=== PATIENT | female | born 1955 | race Caucasian/White ===

== ENCOUNTER 2021-05-20 19:30 | Inpatient (IN) | payer MEDICARE, BC, SELFPAY ==
[2021-05-20 19:30] VITALS: BP 142/62; PULSE 57; RESP 18; TEMP 37.2; O2SAT 95
[2021-05-20 20:17] VITALS: BMI 19.8
--- NOTE | 2021-05-21 03:53 | NURSING ---
PT STRAIGHT CATHED FOR URINE SPECIMEN. 800ML OF CLEAR, YELLOW URINE DRAINED FROM BLADDER. PT TOLERATES PROCEDURE WELL.
[2021-05-21 03:57] LABS: Bacteria 0 SEEN /hpf (None Seen); Mucous, Urine 0 SEEN /hpf (<or=2+); Squamous Epithelial Cells - UA 0 SEEN /hpf (5-10); White Blood Cells 0 SEEN /hpf (0-5)
[2021-05-21 04:12] LABS: Color, Urine Yellow (Yellow); Glucose, Dipstick Normal (Normal); Ketone-Dipstick 50 mg/dl (Negative); Leukocyte Esterase-Dipstick Negative /ul (Negative); Nitrite-Dipstick Negative (Negative); Occult Blood-Urine 150 /ul (Negative); Protein-Dipstick Negative (Negative); Urine Bilirubin Dipstick Negative (Negative); Urine Clarity Clear (Clear); Urine Urobilinogen Normal (Normal); Urine pH 6.5 (5.0 - 8.0)
[2021-05-21 04:21] LABS: Red Blood Cells-Urine 10-25 SEEN /hpf (0-5)
[2021-05-21] MEDS: Menthol/Lanolin/Calamine/Znox 113 GM Tube 1 APPLIC TOPICAL ×2 (05:37→21:04)
[2021-05-21] MEDS: Ondansetron ODT 4 MG Tablet 8 MG PO ×2 (06:46→21:08)
[2021-05-21 08:45] VITALS: BP 136/54; PULSE 57; RESP 20; TEMP 37.1; O2SAT 96
[2021-05-21 08:51] LABS: Hematocrit 28.5 % (37-47); Hemoglobin 9.5 g/dL (12.0-15.0); Mean Corp Hgb Conc 33.3 g/dL (32-36); Mean Corpuscular Hgb 28.9 pg (27.0-32.0); Mean Corpuscular Volume 86.6 fL (81-99); Mean Platelet Vol. 12.4 fl (6.2-12.0); Platelet Count 220 K/mm3 (150-450); RBC Distribution Width CV 15.8 % (11.6-14.6); Red Blood Count 3.29 M/mm3 (4.2-5.4); White Blood Count 4.6 K/mm3 (4.4-11.0)
[2021-05-21 09:19] LABS: ALB/GLOB Ratio 0.5 RATIO (0.9-2.4); AST(SGOT) 14 U/L (15-37); Alanine Aminotransfer ALT/SGPT 11 U/L (13-56); Albumin, Serum 2.2 g/dL (3.2-5.0); Alkaline Phosphatase 48 U/L (45-117); Anion Gap 8 (5-15); BUN 12 mg/dL (7-18); BUN/Creat Ratio 20.5 RATIO (10-20); Calcium,Total 8.5 mg/dL (8.5-10.1); Chloride 106 mmol/L (98-107); Creatinine, Serum 0.59 mg/dL (0.55-1.02); EST Glomerular Filtration Rate 109 mL/min (>60); Est Glom Filt Rate - Afr Amer 132 mL/min (>60); Estimated Creatinine Clearance 42.23 ml/min; Globulin 4.3 g/dL (2.2-4.2); Glucose 92 mg/dL (74-106); Magnesium 2.2 mg/dL (1.6-2.6); Potassium 3.7 mmol/L (3.5-5.1); Protein, Total 6.5 g/dL (6.4-8.2); Sodium Level 138 mmol/L (136-145)
[2021-05-21] MEDS: Lisinopril 20 MG Tablet PO (10:12)
[2021-05-21] MEDS: Aspirin 81 MG TAB.CHEW PO (10:12)
[2021-05-21] MEDS: Multivitamins,Therapeutic Tablet 1 TABLET PO (10:12)
[2021-05-21] MEDS: Heparin Injection (Vial) 5,000 UNIT/ML VIAL 5000 UNIT SC ×2 (10:12→20:58)
[2021-05-21] MEDS: Propranolol 40 MG Tablet 80 MG PO ×2 (10:12→20:59)
[2021-05-21 10:26] VITALS: BP 121/87
--- NOTE | 2021-05-21 10:50 | HP.PCM_ITS ---
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 She was scheduled for a R STA/MCA direct bypass on 05/11/21. The procedure was complicated by hyperperfusion ICH and she then underwent a R FTP (frontal temporal parietal) craniectomy, hematoma evacuation and closure of the distal bypass graft followed by a R titanium mesh cranioplasty. Post operatively she was evaluated by PT/OT/ST and transfer to an acute rehab facility was recommended. She was transferred to the acute rehab unit at [facility] on 05/21/21 for 3 hours of therapy daily to restore function/independence at or near her prior level. Deepika gets Aranesp 300 mcg injection every 2 weeks for MDS. I spoke with her Arjun on the phone and explained we do not have the medication on formulary at [facility] and we would not be able to have that medication while she is in rehab. She received an injection at the previous hospital on 05/19/21. Arjun asked if he could take her to her oncologist's office when the injection is due in 2 weeks and I explained that we can not accommodate this request due to the cost of the medication because it would be charged to [facility] even though she got the injection somewhere else. I told him that if in 2 weeks she is not ready to be discharged we could transfuse if needed. He was agreeable with this plan. COVID test was negative prior to transfer to [facility]. All paperwork from [facility] was reviewed. [facility], [facility] Medical History (Updated 05/21/21 @ 14:[address] Qing Larose DO) 3rd cranial nerve palsy Anxiety and depression Chronic renal failure, stage 2 (mild) Former smoker Gallstone pancreatitis GERD (gastroesophageal reflux disease) Hiatal hernia History of meningioma of the brain History of migraine Hyperlipidemia Hypertension Myelodysplastic disease Sixth cranial nerve palsy TIA (transient ischemic attack) Home Medications acetaminophen 650 mg PO Q6H PRN 05/20/21 [History Last Taken Unknown] artificial tears solution 1 drp OPHTHALMIC (EYE) TID PRN 05/20/21 [History Last Taken Unknown] aspirin 81 mg PO DAILY 05/20/21 [History Last Taken Unknown] atorvastatin 40 mg PO DAILY 05/20/21 [History Last Taken 05/20/21 17:00] lisinopril 20 mg PO DAILY 05/20/21 [History Last Taken Unknown] ondansetron 8 mg PO Q8H PRN 05/20/21 [History Last Taken Unknown] oxycodone 5 mg PO Q4H PRN 05/20/21 [History Last Taken Unknown] propranolol 80 mg PO BID 05/20/21 [History Last Taken Unknown] loratadine 10 mg PO DAILY PRN 05/21/21 [History Last Taken Unknown] lorazepam 0.5 mg PO Q12H PRN PRN 05/21/21 [History Last Taken Unknown] Allergy/AdvReac Type Severity Reaction Status Date / Time Iodinated Contrast Media Allergy Rash Verified 05/21/21 00:39 [CONTRASTS] iodine Allergy Rash Verified 05/20/21 20:26 shellfish derived Allergy Rash Verified 05/20/21 20:26 amoxicillin [From Augmentin] AdvReac Vomiting Verified 05/21/21 12:17 azithromycin [From Zithromax] AdvReac Vomiting Verified 05/21/21 12:17 cephalexin [From Keflet] AdvReac Vomiting Verified 05/21/21 12:17 clavulanic acid AdvReac Vomiting Verified 05/21/21 12:17 [From Augmentin] doxycycline AdvReac Vomiting Verified 05/21/21 12:17 hydrochlorothiazide AdvReac Vomiting Verified 05/21/21 12:17 [From Dyazide] triamterene [From Dyazide] AdvReac Vomiting Verified 05/21/21 12:17 Family History (Updated 05/21/21 @ 14:[address] Qing Larose DO) Mother CVA (cerebral vascular accident) CAD (coronary artery disease) Father CVA (cerebral vascular accident) CAD (coronary artery disease) Hypertension Brother Seizures Surgical History (Updated 05/21/21 @ 14:[address] Qing Larose DO) H/O section H/O hysterectomy for benign disease History of cranioplasty History of resection of meningioma History of tonsillectomy Status post craniectomy Social History (Updated 05/21/21 @ 14:[address] Qing Larose, DO) household members: spouse housing: house number of children: 3 current occupational status: unemployed Smoking Status: Former smoker Tobacco: How many years used: 3 how long ago did patient quit smokin substance use type: does not use ROS Constitutional Constitutional: Reports fatigue and weakness; Denies anorexia, change in weight, chills, fever(s) or night sweats Eyes Eyes: Reports other Details: R eye does not track since the endonasal resection of the cavernous sinus meningioma in 2017 ; Denies blurry vision, change in vision, double vision, eye pain or loss of vision ENT HEENT: Reports dysphagia; Denies abnormal hearing, ear pain, headache(s), hearing loss, loss taste/smell, nasal congestion, nasal discharge, sore throat or throat swelling Cardiovascular Cardiovascular: Denies chest pain, dyspnea on exertion, edema, lightheadedness, orthopnea, palpitations, paroxysmal nocturnal dyspnea or syncope Respiratory/Chest Respiratory/Chest: Denies cough, dyspnea, shortness of breath at rest, shortness of breath with exertion or wheezing Gastrointestinal Gastrointestinal: Reports nausea and other Details: tells me that she takes a lot of Zofran for nausea. ; Denies abdominal pain, constipation, diarrhea, dyspepsia, hematemesis, hematochezia or vomiting Genitourinary Genitourinary: Reports urinary frequency and other Details: urine retention ; Denies dysuria, hematuria, nocturia, urinary hesitancy, urinary incontinence or urinary urgency Musculoskeletal Musculoskeletal: Denies back pain, joint pain, joint swelling or neck pain Integumentary Integumentary: Reports other Details: Incision R side of the scalp from recent FTP craniectomy ; Denies jaundice or rash Neurologic Neurologic: Reports abnormal speech, focal weakness and weakness; Denies co nfusion, disequilibrium, dizziness, headache(s), paresthesias, seizures or tremor(s) Psychiatric Psychiatric: Reports anxiety and depression; Denies homicidal ideation or suicidal ideation Endocrine Endocrinology: Denies change in body appearance, polydipsia or polyuria Hematologic/Lymphatic Hematologic/Lymphatic: Denies easy bleeding, easy bruising or lymphadenopathy Allergic/Immunologic Allergic/Immunologic: Denies rhinitis, eczemia or asthma Vital Signs Vital Signs Vital Signs: 05/20/21 19:30 05/20/21 20:00 05/21/21 08:45 Temperature 99 F 98.8 F Temperature Source Temporal Oral Pulse Rate 57 L 57 L Respiratory Rate 18 20 H Respiratory Effort Normal Respiratory Depth Normal Respiratory Pattern Normal Blood Pressure 142/62 H 136/54 H Blood Pressure Mean 88 81 Blood Pressure Source Monitor Monitor Blood Pressure Position Semi-Fowlers Semi-Fowlers Blood Pressure Location Right Arm Right Arm Pulse Ox 95 96 Oxygen Delivery Method Room Air Room Air Room Air 05/21/21 10:26 Temperature Temperature Source Pulse Rate Respiratory Rate Respiratory Effort Respiratory Depth Respiratory Pattern Blood Pressure 121/87 H Blood Pressure Mean 98 Blood Pressure Source Monitor Blood Pressure Position Semi-Fowlers Blood Pressure Location Right Arm Pulse Ox Oxygen Delivery Method Weight Weight: 108 lb 0.424 oz Body Mass Index (BMI) 19.8 Indicators for Scoring Admitted with or Primary Diagnosis of CVA/Stroke: Yes Hx of CVA/Stroke: Yes Modified Jamison Score MRS Score at time of Evaluation: 3-Moderate disability NIHSS NIHSS 1a. Level of Consciousness: Alert; keenly responsive 1b. LOC Questions: Answers BOTH questions correctly. 1c. LOC Commands: Performs both tasks correctly. 2. Best Gaze: Partial gaze palsy; (left eye does not track past the midline laterally. Intact vision on the L. Has CN 3 and 6 palsy on the R since resection of meningioma in 2017) 3. Visual: No visual loss 4. Facial Palsy: Minor paralysis (flattened nasolabial fold, asymmetry on smi ling) 5a. Left Arm: Drift; arm drifts downward but doesn?t hit the bed 5b. Right Arm: No drift; arm holds 90 (or 45) degrees for full 10 seconds 6a. Left Leg: No drift; leg holds 30-degree position for full 5 seconds 6b. Right Leg: No drift; leg holds 30-degree position for full 5 seconds 7. Limb Ataxia: Absent 8. Sensory: Normal; no sensory loss 9. Best Language: No aphasia; normal 10. Dysarthria: Normal 11. Extinction and Inattention: Profound shreya-inattention or extinction to more than one modality; Total: 5 Physical Exam Const alert, oriented x3 and no apparent distress General Appearance: cooperative HEENT HEENT Narrative: Tongue is coated with white coating. Large incision R scalp due to craniotomy. Intact with no erythema and no DC. Mouth: dry mucous membranes Eyes PERRL Eyes Narrative: R eye is on midline and does not track. The left eye does not track past the midline laterally. No visual deficit on the left ......she has visual and sensory deficit. Neck No nuchal rigidity and supple General: trachea midline; Negative for lymphadenopathy Resp normal respiratory effort, normal air movement and clear to auscultation bilaterally Resp Narrative: no conversational dyspnea Auscultation: Negative for rales, rhonchi or wheezes Cardio regular rate, regular rhythm, S1 normal heart sound, S2 normal heart sound, no murmurs, no rub and no gallops Cardio Narrative: no ectopy GI normal to inspection, nondistended, normoactive bowel sounds, soft to palpation and non-tender Extremity Negative for no calf tenderness General Extremity: Negative for clubbing, cyanosis or edema Skin Skin Narrative: scalp incision General Skin Exam: no breakdown Rashes: no rashes Wounds: wounds noted Neuro Neuro Narrative: see NIHSS Psych Psych Narrative: Speech is monotone. Affect is flat. Makes appropriate eye contact. Seems to have a problem with motivation.......she will do what is asked of her, sometimes saying she can't and then does it but she is not really motivated to do things without prompting. Will need to talk with her to see if this is new? or is this chronic even prior to the recent ICH. She s not fidgety or restless. She is able to follow simple commands. She is cooperative . I do sense she has some psychomotor slowing. Thought Content: No suicidality and No homicidality Results Lab / Micro Data Result Diagrams: 05/21/21 08:35 05/21/21 08:35 Labs: Laboratory Results - last 24 hr 05/21/21 03:45: Urine Color Yellow, Urine Clarity Clear, Urine pH 6.5, Ur Specific [place] 1.010, Urine Protein Negative, Urine Glucose (UA) Normal, Urine Ketones 50 H, Urine Occult Blood 150 H, Urine Nitrite Negative, Urine Bilirubin Negative, Urine Urobilinogen Normal, Ur Leukocyte Esterase Negative, Urine RBC 10-25 SEEN, Urine WBC 0 SEEN, Ur Squamous Epith Cells 0 SEEN, Urine Bacteria 0 SEEN, Urine Mucus 0 SEEN 05/21/21 08:35: WBC 4.6, RBC 3.29 L, Hgb 9.5 L, Hct 28.5 L, MCV 86.6, MCH 28.9, MCHC 33.3, RDW Std Deviation 49.0 H, RDW Coeff of Adin 15.8 H, Plt Count 220, MPV 12.4 H 05/21/21 08:35: Sodium 138, Potassium 3.7, Chloride 106, Carbon Dioxide 24.0, Anion Gap 8, BUN 12, Creatinine 0.59, Estim Creat Clear Calc 42.23, Est GFR (MDRD) Af Amer 132, Est GFR (MDRD) Non-Af 109, BUN/Creatinine Ratio 20.5 H, Glucose 92, Calcium 8.5, Phosphorus 3.0, Magnesium 2.2, Total Bilirubin 1.10 H, AST 14 L, ALT 11 L, Alkaline Phosphatase 48, Total Protein 6.5, Albumin 2.2 L, Globulin 4.3 H, Albumin/Globulin Ratio 0.5 L Assessment & Plan Assessment/Plan (1) Physical debility: (2) Hemorrhagic cerebrovascular accident (CVA): (3) Status post craniectomy: (4) History of cranioplasty: (5) Myelodysplastic disease: (6) Malnutrition: (7) GERD (gastroesophageal reflux disease): (8) Hyperlipidemia: (9) Chronic renal failure, stage 2 (mild): (10) Sixth cranial nerve palsy: (11) 3rd cranial nerve palsy: (12) Hypertension: (13) Former smoker: (14) Anxiety and depression: PLAN: PLAN PT for gait stability OT for ADL's ST for evaluation Analgesics as needed Bowel protocol Fall precautions Assess for Anxiety/Depression - I did this. She is not on a medication for depression and she is on PRN Ativan but, states she does not take this and she does not like taking medications. She is in counselling. We talked about a me dication at night to help with insomnia so she can rest and have enough energy to do 3 hours of therapy daily. She will consider this. I discussed discontinuing the Ativan with her because it is addictive and can cause confusion and falls and she is OK with this. She has not been taking chronical ly so this should not be a problem with withdrawal. GI prophylaxis not necessary at this time......she is asymptomatic and has not been on a PPI or an H2 DVT prophylaxis with Heparin Follow up with neurosurgery (scheduled for 05/28), oncologist and PCP following DC from [facility] AM lab from this AM was personally reviewed. Will revisit use of Trazodone at HS to help with insomnia. follow up appt with Nika Figueroa CNP - Neurosurgery on 05/28/21 Charges/Coding Visit Charges Inpatient E&M: 78949 Init Hosp L3
--- NOTE | 2021-05-21 15:34 | REHABEVAL_ITS ---
Admission Information Primary Diagnosis:: Debility due to ICH/craniectomy Status Changes from Prescreening?: No changes Identified Actual Problem List:: Skin Intergrity, Pain, ALteration in Cmfrt, Depression, Alteration in Sleep, Alteration in Nutrition, Mobility Impaired, Self Care Deficit, Know.Dfct of Medicaitons, Fluid Change-Dehydration and Alteration- Leisure Activ. Potential Problem List:: DVT, Bleeding, Infection, UTI, Aspiration, Falls, Skin Integrity and Depression Risk of Complications DVT: LUCHO Hose and - (Heparin 5,000 units Q 12H) Bleeding: Monitor Lab Values, Nursing to Teach Precautions for anti-coagulation therapy., Wound, if applicable, to be assessed every shift. and Stroke patients assessed for lethargy or change in status. Infection: Clinical Staff to Monitor for S/S of infection: and S/S of infection include fever, redness, warmth, etc. Urinary Tract Infection: Monitor for frequency, burning, discomfort, or incontinence. and Nursing will obtain urine sample for urinalysis and C&S when ordered. Aspiration: Clinical staff will monitor for coughing, drooling, congestion., Speech will evaluate swallowing and dsyphasia. and Nursing will monitor patient swallowing during meals. Falls: Patient will be evaluated for Fall Precautions and Patient will be placed on Fall Precautions as indicated per protocol. Skin Breakdown: Nursing will assess skin daily using assessment tool. and Nursing will place on Skin Breakdown Precautions as indicated. Pain: Clinical staff will assess patient's pain level per protocol., Medications will be given, if needed, and the pain level reassessed. and Other methods: Massage, distraction, decrease stimulus, etc. used PRN. Plan of Care Patient requires physician specializing in physical medicine and rehab oversight to provide close medical supervision of rehab issues including: Pain Management, Sleep Problems, Bowel and Bladder, Medical and co-morbidity Management, DVT prophylaxis, Rehabilitation Leadership and Coordination of treatment team Patient needs Physical Therapy: For a minimum of 1 hour and At least 5 out of 7 days Patient needs Physical Therapy to improve:: Mobility, Strengthening, Transfers, Stretching, ROM, Endurance, Stairs, Gait and Balance Patient needs Occupational Therapy: For a minimum of 1 hour and At least 5 out of 7 days Patient needs Occupational Therapy to improve ADL's incl.: Eating, Grooming, Bathing, Dressing, Toileting, Toilet transfers, Community Reintegration, Higher functioning activities, Household tasks, Adaptive Equipment, Splinting and Other activities as determined Patient requires speech therapy: For a minimum of 1 hour and At least 5 out of 7 days Patient requires speech therapy for: Swallowing, Cognition, Language Skills and Compensatory Strategies Patient requires 24/7 Rehabilitation Nursing for: Pain Issues, Identifying and preventing risk factors, Monitoring and reporting current medical conditions, Assisting with ambulation, transfer, and all ADL's, Teaching patients about disease process and medications, Family teaching, Providing safe environment, Bowel and Bladder Issues, Skin integrity and Medication Management Patient needs Exercise Equipment Repair Technician/ Case Management for: Discharge Planning, Arranging Home Equipment or Services and Family Interventions Patient needs Dietary and Nutrition Services for: Adequate Nutrition, Nutritional Supplements and Nutritional Education Goals Patient will remain: free from falls and or injury at time of discharge. Patient will perform bed mobility at: MOD I level of assist. Patient will complete transfers from bed to chair at: MOD I level of assist. Patient will ambulate: with LRD and - (250 ft with LRD at ELIZABETH) Patient will complete upper body dressing at: MOD I level of assist. Patient will complete lower body dressing at: MOD I level of assist. Patient will complete toileting at: MOD I level of assist. Patient will perform bathing at: MOD I level of assist. Patient will complete grooming at: MOD I level of assist. Patient will complete home management skills at: MOD I level of assist. Patient will achieve: - (1 curb step) Patient will have pain level of: of 3 or less Patient's skin will: remain intact Patient will receive: adequate nutrition. Discharge Planning Pt Prognosis for Sig. Practical Improv. w/in Reasonable Time: Good Estimated Length of stay (days): 14 Anticipated D/C Destination: Home Was Preadmission Assessment Accurate?: Yes
[2021-05-21 20:45] VITALS: BP 136/57; PULSE 58; RESP 16; TEMP 36.9; O2SAT 98
[2021-05-21 20:50] VITALS: BMI 19.8
[2021-05-21] MEDS: Atorvastatin Calcium 40 MG Tablet PO (20:59)
--- NOTE | 2021-05-21 23:45 | NURSING ---
PT PLACED ON BEDPAN AND UNABLE TO PASS ANY URINE. BLADDER SCAN MEASURES 561 ML URINE IN BLADDER. #16 FR SUMMERS CATHETER INSERTED WITHOUT DIFFICULTY AND PT TOLERATES PROCEDURE WELL. APPROX 500ML CLEAR YELLOW URINE DRAINS FROM BLADDER. SUMMERS BAG NOT EMPTIED AT THIS TIME.
--- NOTE | 2021-05-22 02:01 | NURSING ---
REVIEWED AND AGREE WITH PROJECT BUYER'S FUNCTIONAL ASSESSMENT AND HANDOFF CHARTING.
--- NOTE | 2021-05-22 02:26 | NURSING ---
PT REQUESTS ICEPACK TO PUT BEHIND HER LEGS AND STATES HER LEGS ARE KILLING HER. PT STATES SHE USES ICE SOMETIMES AT HOME. ICEPACK PROVIDED AND PLACED BEHIND PT'S KNEES. OXYCODONE OFFERED TO PT AND PT DECLINES AND SAYS I DON'T TAKE THAT STUFF. PT HAS USED HER CALL LIGHT MULTIPLE TIMES THIS SHIFT THUS FAR WITH A VARIETY OF COMPLAINTS WHICH RANGE FROM MY ARMS ARE COLD, MY FEET ARE HOT, CHECK MY PEEPEE BAG IS MY CATHETER WORKING?.PT SEEMS VERY AWAKE EACH TIME STAFF IS CALLED INTO ROOM.
[2021-05-22] MEDS: Menthol/Lanolin/Calamine/Znox 113 GM Tube 1 APPLIC TOPICAL ×3 (06:18→22:02)
[2021-05-22 07:35] VITALS: O2SAT 96
[2021-05-22] MEDS: Multivitamins,Therapeutic Tablet 1 TABLET PO (08:48)
[2021-05-22] MEDS: Aspirin 81 MG TAB.CHEW PO (08:48)
[2021-05-22] MEDS: Heparin Injection (Vial) 5,000 UNIT/ML VIAL 5000 UNIT SC ×2 (08:48→22:01)
[2021-05-22] MEDS: Propranolol 40 MG Tablet 80 MG PO (08:49)
[2021-05-22] MEDS: Lisinopril 20 MG Tablet PO (08:50)
[2021-05-22 09:07] VITALS: BP 127/52; PULSE 63; RESP 16; TEMP 37.1; O2SAT 95
--- NOTE | 2021-05-22 09:37 | PCM.PN.BLA ---
Progress Note Afebrile VSS-heart rate is in the high 50s to low 60s. She is on Propanolol Maintaining appropriate oxygen saturation on RA Oral intake is poor She has been incontinent of urine and she retains(>500 residual yesterday). She admits to sometimes urinating hourly even prior to the stroke. Discussed with nursing - She did not sleep well last night and was frequently ringing the call vaughan. Complaints include My feet are hot, my arms are cold, Is my catheter working. Requested the nurse check her peepee bag and put ice behind her knees at different times. Reviewed the PT/OT/ST notes Medication list reviewed. Has been refusing senna.....states she had several loose BM's prior to DC at the previous hospital. She had a BM yesterday. Has not taken any Oxycodone but has take 8 mg of Zofran twice since admission. I talked with her Lj on the phone and he tells me that since she had gallstone pancreatitis in February things have been going downhill. Her personality has changed and she sees a therapist but not consistently....therapist is booked up. Has not been sleeping well at home. Urinates small amounts frequently even before the stroke. Takes Zofran frequently and is taking 8 mg rather than 4 and this can cause urine retention. She has not been wanting to do anything for herself. She asks her to roll her over in bed and he pulls the covers away but, he tells her to roll herself. She gets mad at him. She keeps asking me what do I have to do to get out of here? She is not eating and each time I go in her room she is lying on her Left side in bed. Sometimes awake but, also sleeping during the day. She tells me that she does not want to take an antidepressant because she was on Sertraline in the past and it gave her tremors. We discussed that all medications have side effects and just because you had a adverse reaction to one medication does not mean you will have adverse side effects with other antidepressants. She has had 4 sessions with the psychotherapist........she tells me that both she and her go to therapy. She denies feeling suicidal. She does any personal or FH of BPD. She does not like to talk about why she has been depressed in the past. She has many somatic complaints.....GARCIA, Fatigue, muscle pains, stomach aches, nausea to name a few. Physical Exam Const alert, oriented x3 and no apparent distress Constitutional Narrative: She cooperated with therapy today. She has a waxy/yellow caste to her skin. No scleral icterus. Eyes conjunctivae normal and no scleral icterus Eyes Narrative: no change in the eye exam done at admission. Resp Resp Narrative: poor respiratory effort....I had to ask her several times to take a deep breath through her mouth and then had to show her what I wanted her to do. The lungs are CTA. She is not tachypneic and she has no conversational dyspnea. Cardio regular rate, regular rhythm and no gallops GI normal to inspection, nondistended, normoactive bowel sounds and soft to palpation GI Narrative: no guarding with palpation Extremity no calf tenderness and no pedal edema Psych Psych Narrative: Affect is very flat and there is little modulation to her voice. she is lying in bed on her left side and does not move. She is not restless or fidgety. She denies hallucinations, suicidal ideation and homicidal ideation. She admits to suffering from depression in the past.....she denied this yesterday. No motivation to do anything for herself. Looks extremely tired. Very resistant to taking any medication. Thinks that the psychotherapy is helping her. We discussed that if she does not start sleeping and eating she will have a hard time healing her wounds and she will get weaker and unable to do the 3 hours of therapy daily so that she can get strong enough to return home. At this point her states he would not be able to care for her at home. Activity / Motor Behavior: appropriate eye contact; Negative for fidgetting, restless or mannerisms Mood & Affect: depressed, apathetic, sad and flat affect Memory / Cognition: memory grossly intact Insight: poor Judgement: poor Assessment & Plan Assessment/Plan (1) Bradycardia: (2) Physical debility: (3) Status post craniectomy: (4) Hemorrhagic cerebrovascular accident (CVA): (5) Myelodysplastic disease: PLAN: 1. Decrease the Inderal to 60 mg p.o. twice daily 2. Check a lipase - It was normal so we can R/O pancreatitis as the etiology of the nausea. I suspect the nausea is related to the depression. 3. Beta blockers can also make depression worse. I do not know why she is on Inderal. Will review the records from the previous hospital again and see if she was on this prior to the stroke. 4. I gave her the product handout for Remeron and also some literature about the sx of depression and how it is treated. she will discuss with her and let me know what she wants to do. 5. CBC ordered for next week....will check weekly while she is in rehab Visit Charges Inpatient E&M: 60047 Subs Hosp L2
[2021-05-22 11:34] LABS: Lipase 175 U/L (73-393)
[2021-05-22 17:00] VITALS: BMI 19.8
[2021-05-22] MEDS: Haloperidol 1 MG Tablet 2 MG PO (20:18)
--- NOTE | 2021-05-22 20:28 | NURSING ---
Addendum entered by Inna Lopes 05/22/21 21:46: No further complaints of nausea, no adverse effects observed or reported after first dose of Haldol per order. Original Note: Pt. requests something for nausea states I want to try the new medicine the doctor ordered for nausea, educated on new order for Haldol, administered at this time per pt. request. No emesis observed or reported. No distress observed or reported. repositioned for comfort. Denies further requests. Call light in reach. Personal alarm on and functioning properly.
[2021-05-22 22:00] VITALS: BP 133/76; PULSE 57; RESP 18; TEMP 36.7; O2SAT 96; BMI 19.8
[2021-05-22] MEDS: Senna/Docusate Sodium 1 Tablet 2 TABLET PO (22:00)
[2021-05-22] MEDS: Propranolol 40 MG Tablet 60 MG PO (22:00)
[2021-05-22] MEDS: Atorvastatin Calcium 40 MG Tablet PO (22:01)
--- NOTE | 2021-05-23 02:27 | NURSING ---
0000 pt on the call several times from 2200 until now wanting simple things such as: more blankets, blankets off, getting up to the recliner etc. pt requested to get to the recliner d/t leg pain for a few minutes. pt was encouraged to stay up in the chair for an hour then staff could walker around the unit. pt stated how about a 1/2 an hour to go for a walk? staff agreed. 0100 pt in recliner with ice pack behind her left calf and call light in reach. assurance given to pt that staff would back to walk her. staff remained in room talking with talk with pt about making sure she lets staff know what she wants so that she does not have to the call light every few minutes with another need pt given assurance that her needs are important but so are other pts as well and that staff had extra work that needed to be done as well. 0145 pt stated at 0215 you will come back and given a walk? staff gave assurances that we would do so. 0153 pt rings to see if it was time to walk yet, staff reaffirmed time 0205 pt rings to check on time for walk, staff reaffirmed time again 0210 pt rings again to check on walk time, and staff lets her know that she still has 5 minutes. 0215 staff goes into the room and walk pt and pt requested to go for a w/c ride first and staff reminded pt that she is in rehab and walking would better for her. pt ambulated in short spurts around the unit and did well, pt held her cane while staff assisted with vo bag. pt returned to room and was assisted back to bed and made comfortable, pt encouraged to get some sleep
--- NOTE | 2021-05-23 04:45 | NURSING ---
Addendum entered by Eugenie Boothe 05/23/21 04:57: pt did let staff wash her feet and legs and perform catheter care this am, pt returned to bed and positioned for comfort, call light in reach Original Note: 0400 after returning after walking, pt rested for approximately 1/2 an hour. at 0300 pt put call light on for staff to check ice pack to back of leg. staff did so and placed back on pt leg. 0310 pt puts on light to a blankets adjusted and staff complies 0400 pt calls and wants to sit on the edge of the bed d/t leg hurting. staff suggested to get washed up for the day d/t she was awake and this might relax her. pt first disagreed and staff stated getting up and moving might help her leg and well, staff suggested at shower and stated no, but she would take a sponge bath. pt wanted to into the br with the w/c because that is what she did with OT yesterday. staff suggested walking and pt got up on the side of the bed and ambulated with staff member to the br. staff offered to wash pt hair and pt declined, pt id
[2021-05-23] MEDS: Menthol/Lanolin/Calamine/Znox 113 GM Tube 1 APPLIC TOPICAL ×2 (06:31→20:49)
[2021-05-23] MEDS: Propranolol 40 MG Tablet 60 MG PO ×2 (08:00→20:48)
[2021-05-23] MEDS: Heparin Injection (Vial) 5,000 UNIT/ML VIAL 5000 UNIT SC ×2 (08:01→20:46)
[2021-05-23] MEDS: Ensure Clear 120 ML Liquid PO ×4 (08:03→20:51)
[2021-05-23] MEDS: Multivitamins,Therapeutic Tablet 1 TABLET PO (08:04)
[2021-05-23] MEDS: Lisinopril 20 MG Tablet PO (08:04)
[2021-05-23] MEDS: Aspirin 81 MG TAB.CHEW PO (08:04)
[2021-05-23 08:30] VITALS: O2SAT 96
[2021-05-23 09:00] VITALS: BP 139/65; PULSE 60; RESP 17; TEMP 36.4; O2SAT 97
[2021-05-23] MEDS: Haloperidol 1 MG Tablet 2 MG PO (13:15)
[2021-05-23 16:00] VITALS: BMI 19.8
[2021-05-23] MEDS: Mag Hydrox/Al Hydrox/Simeth 30 ML UDC PO (18:32)
[2021-05-23] MEDS: Magnesium Hydroxide 30 ML UDC PO (18:32)
[2021-05-23 19:42] VITALS: BP 132/45; PULSE 56; RESP 16; TEMP 36.6; O2SAT 98
[2021-05-23] MEDS: Atorvastatin Calcium 40 MG Tablet PO (20:46)
[2021-05-23] MEDS: Senna/Docusate Sodium 1 Tablet 2 TABLET PO (20:46)
[2021-05-23 20:52] VITALS: PULSE 60; O2SAT 96
[2021-05-24] MEDS: Bisacodyl 10 MG Suppository RC (00:50)
[2021-05-24 05:00] VITALS: BMI 19.8
[2021-05-24] MEDS: Menthol/Lanolin/Calamine/Znox 113 GM Tube 1 APPLIC TOPICAL ×2 (07:18→21:20)
[2021-05-24 07:28] VITALS: BP 139/53; PULSE 57; RESP 16; TEMP 36.3; O2SAT 99
[2021-05-24 07:33] VITALS: O2SAT 98
[2021-05-24] MEDS: Senna/Docusate Sodium 1 Tablet 2 TABLET PO ×2 (07:51→21:18)
[2021-05-24] MEDS: Heparin Injection (Vial) 5,000 UNIT/ML VIAL 5000 UNIT SC ×2 (07:51→21:19)
[2021-05-24] MEDS: Ensure Clear 120 ML Liquid PO ×3 (07:51→21:19)
[2021-05-24] MEDS: Propranolol 40 MG Tablet 60 MG PO ×2 (07:52→21:18)
[2021-05-24] MEDS: Lisinopril 20 MG Tablet PO (07:52)
[2021-05-24] MEDS: Multivitamins,Therapeutic Tablet 1 TABLET PO (07:54)
[2021-05-24] MEDS: Aspirin 81 MG TAB.CHEW PO (07:54)
[2021-05-24 14:05] VITALS: BMI 19.8
[2021-05-24 18:59] VITALS: BP 143/65; PULSE 60; RESP 18; TEMP 36.9; O2SAT 97
--- NOTE | 2021-05-24 19:19 | NURSING ---
SSE given due to constipation and R/S ineffective except for a small soft earlier in attends. Patient pushed out half of the fluid of the enema even though instructed to keep it in. Sat on the toilet twice but had 2 small ball like bm's. Patient assisted back to bed, at bedside.
--- NOTE | 2021-05-24 19:53 | NURSING ---
PT CLEANED OF A SMEAR OF BROWN STOOL AND ATTENDS CHANGED. PT ENCOURAGED TO DRINK WATER, BUT REFUSING AT THIS TIME. PT OFFERED PRUNE JUICE TO ASSIST WITH HAVING A BM, BUT DECLINES SAYING THAT IT UPSET HER STOMACH THE LAST TIME SHE HAD IT.
[2021-05-24] MEDS: Atorvastatin Calcium 40 MG Tablet PO (21:18)
[2021-05-24] MEDS: Mirtazapine 15 MG Tablet PO (21:20)
[2021-05-24] MEDS: Haloperidol 1 MG Tablet 2 MG PO (23:38)
[2021-05-25] MEDS: Menthol/Lanolin/Calamine/Znox 113 GM Tube 1 APPLIC TOPICAL ×3 (04:49→20:16)
[2021-05-25 07:43] VITALS: BP 130/58; PULSE 61; RESP 18; TEMP 36.7; O2SAT 96
[2021-05-25] MEDS: Propranolol 40 MG Tablet 60 MG PO (08:30)
[2021-05-25] MEDS: Lisinopril 20 MG Tablet PO (08:30)
[2021-05-25] MEDS: Heparin Injection (Vial) 5,000 UNIT/ML VIAL 5000 UNIT SC ×2 (08:30→20:19)
[2021-05-25] MEDS: Multivitamins,Therapeutic Tablet 1 TABLET PO (08:30)
[2021-05-25] MEDS: Senna/Docusate Sodium 1 Tablet 2 TABLET PO ×2 (08:30→20:20)
[2021-05-25] MEDS: Aspirin 81 MG TAB.CHEW PO (08:30)
[2021-05-25] MEDS: Ensure Clear 120 ML Liquid PO ×3 (08:32→20:19)
--- NOTE | 2021-05-25 10:54 | PN_ITS ---
Progress Note Deepika was seen on team rounds today. Her Lj was present in the room for rounds. Afebrile VSS Maintaining appropriate oxygen saturation on RA Oral intake has picked up for the past 2 days. Weight is stable. No bowel movement for 5 days now. She has been refusing stool softeners. She was given a Dulcolax suppository yesterday and an enema with no results. Discussed with nursing -she asked the nurse yesterday for something to help her sleep last night and she was started on Remeron 15 mg. The patient states she slept better however the nurses documented she was up most of the night and there were 20+ uses of the call light. she has been getting Haldol for nausea and it is working for her. Zofran was discontinued due to possible cause of urine retention. Reviewed the PT/OT/ST notes Medication list reviewed. After talking with Lj Poe was always very active and high functioning. This started to change in spring. She had decreased strength and decreased sensation in the left hand. she was told by a doctor that she probably had carpal tunnel S. Then in November or December when she was on vacation she lost strength and function in the Left leg and had trouble maintaining balance. She then apparently had an MRI of the head and was told she had had strokes since the last examination. At that time her mentation started to change. When she had the meningioma resected in 2016 she also then had gamma knife radiation to the R carotid because there was tumor wrapped around the R carotid and it responded well but, then the tumor recurred and caused occlusion of the R carotid that lead to strokes. Then she underwent the R STA-R MCA direct transfer graft and had the reperfusion hemorrhage. I suspect she has had cognitive dysfunction prior to the recent ICH and now it has been made worse by the hemorrhagic CVA. In conjunction with this she has become very depressed and has not been eating or sleeping. Deepika denies SOB, cough, abd pain lightheadedness. She has frequent nausea that predated the ICH. I asked her why she was taking sertraline and she told me because she was high strung and feeling overwhelmed. She has a sister with a hx of Bipolar disorder. Deepika denies every being told she was bipolar. Sertraline was discontinued due to tremors. She has never been on any other anti-depressants. Physical Exam Const Constitutional Narrative: She is sleepy and more tired today. she is not making good eye contact today and is more subdued. She has a decent memory and was able to tell me why she was on Inderal......it was started for HTN. General Appearance: cooperative Eyes Eyes Narrative: no change in the CN 3 and 6 palsies. Neck No nuchal rigidity and No no lymphadenopathy Chest inspection of chest normal Chest Narrative: Decreased respiratory effort. CTA. Not coughing. no conversational dyspnea. Chest: symmetrical chest wall rise Cardio regular rhythm, S1 normal heart sound, S2 normal heart sound, no murmurs and no gallops Rate: bradycardia GI GI Narrative: mildly distended. low frequency BS's. No guarding with palpation. No guarding with palpation. Extremity no calf tenderness and no pedal edema Skin General Skin Exam: no breakdown Rashes: no rashes Assessment & Plan Assessment/Plan (1) Physical debility: (2) Hemorrhagic cerebrovascular accident (CVA): (3) History of cranioplasty: (4) Myelodysplastic disease: (5) Anxiety and depression: (6) Sleep disorder: (7) Constipation: PLAN: 1. DC the Remeron and start 25 Seroquel at 2000 nightly. Hold off on starting an antidepressant. Taper the propanolol......this can cause depression, constipation, sleep disorders, mood disorders, nausea, changes in appetite........some of the current presentation could be related to a non- selective Beta meron......sol in a pt with strokes. If the BP goes up will start a dihydropyridine calcium channel meron. 2. Will taper the propanolol off. If she is still lethargic, having sleep problems and constipation and nausea would consider a antidepressant at that time. 3. Get a KUB of the abdomen to rule out obstruction as the etiology of severe constipation not responding to laxatives. The XRAY showed a large amount of retained stool throughout the abd. No evidence of bowel obstruction. Mag citrate ordered. If no results in 4 hours give another enema. she is going to need to have several BM's to get the stool all cleaned out. Visit Charges Inpatient E&M: 33600 Subs Hosp L2
--- NOTE | 2021-05-25 10:58 | RAD_ITS ---
STUDY: X-RAY - ABDOMEN/PELVIS REASON FOR EXAM: Female, 66 years old. Severe constipation TECHNIQUE: Single AP view of the abdomen / pelvis. COMPARISON: None. FINDINGS: There is an abundance of fecal material throughout the colon. Solitary calcified gallstone. This measures 2.2 cm. Normal soft tissue structures. Normal visualized osseous structures. RAD/Abdomen Single View IMPRESSION: Large amount of fecal material is seen in the colon. Electronically Signed: Bhavik Bentley MD at 14:39 EST , Service support ,
[2021-05-25 13:07] VITALS: BMI 19.8
--- NOTE | 2021-05-25 14:24 | CASEMGMT ---
Social Work IDT met with patient and for Team meeting. Discussed patient's progress in PT/OT/ST and nursing. explained timeframe since December 2016 of medical history and TIAs, which better explained to IDT pt's assistance needs and mood prior to surgery. Pt agreeable to start on antidepressant. Explained and provided information on Stroke Support Group. Explained Medicare approved 16 days with DC 06/05. Broached topic of pt possibly needing SNF instead of going straight home at DC. Unsure if can assist pt safely at level this level at home. Explained Medicare skilled coverage at SNF. Explained SW will assist with DC plans home or SNF. Will ReTeam next week and continue to assess progress and make DC recommendations. SW to continue to follow. Shelby Bacon, DIRECTOR VISUAL HARVEST CONTRACTOR
[2021-05-25] MEDS: Magnesium Citrate 300 ML 150 ML PO (16:08)
[2021-05-25 19:40] VITALS: BP 147/50; PULSE 58; RESP 18; TEMP 36.8; O2SAT 95; BMI 19.8
[2021-05-25] MEDS: Bisacodyl 5 MG Tablet 10 MG PO (19:45)
[2021-05-25] MEDS: Atorvastatin Calcium 40 MG Tablet PO (20:20)
[2021-05-25] MEDS: Propranolol 40 MG Tablet PO (20:20)
[2021-05-25] MEDS: QUEtiapine 25 MG Tablet PO (20:20)
[2021-05-25] MEDS: Haloperidol 1 MG Tablet 2 MG PO (21:27)
--- NOTE | 2021-05-26 06:41 | NURSING ---
0500 pt answers when name is called and was informed that she would be receiving an enema d/t her bowels were still not moving enough. pt was noted to be incontinent of a small amt of loose non-formed stool in her attends this am. pt given sse, but did not retain any of the water and when sat up on the bsc expelled a small amt of liquid and 3 small pieces of soft formed stool. pt refused to sit on the bsc any longer than than 5minutes stated that she was finished. pt cleansed and returned to bed and catheter care was finished. pt is noted to have a flat affect and is withdrawn not offering any communication as she had last week. pt did report that she did sleep last night.
[2021-05-26 08:05] VITALS: BP 134/72; PULSE 68; RESP 16; TEMP 37.1; O2SAT 98
[2021-05-26] MEDS: Polyethylene Glycol 3350 17 GM PACKET PO (08:14)
[2021-05-26] MEDS: Lisinopril 20 MG Tablet PO (08:14)
[2021-05-26] MEDS: Senna/Docusate Sodium 1 Tablet 2 TABLET PO ×2 (08:14→20:00)
[2021-05-26] MEDS: Heparin Injection (Vial) 5,000 UNIT/ML VIAL 5000 UNIT SC ×2 (08:14→20:19)
[2021-05-26] MEDS: Ensure Clear 120 ML Liquid PO ×2 (08:15→20:18)
[2021-05-26] MEDS: Aspirin 81 MG TAB.CHEW PO (08:15)
[2021-05-26] MEDS: Multivitamins,Therapeutic Tablet 1 TABLET PO (08:15)
[2021-05-26] MEDS: Propranolol 40 MG Tablet PO ×2 (08:15→20:00)
--- NOTE | 2021-05-26 10:05 | PCM.PN.BLA ---
Progress Note Afebrile VSS Maintaining appropriate oxygen saturation on RA Oral intake is poor Discussed with nursing - Still no BM and it has now been 6 days. she drank only about 1/2 of the Mag citrate ordered yesterday. She had a SSE this AM and could not hold the water. She expelled 3 small pieces of stool per the nurses notes. She finally slept last night but, this AM she is sleepy. She took the senna and the Miralax today. Burden remains in until we get the constipation problem solved. Taking the Haldol only once a day for nausea and it is helping. Reviewed the PT/OT/ST notes Medication list reviewed. She has not taken any Oxycodone since admission. HR is up in the 90's today and the MM are dry. Physical Exam Const Constitutional Narrative: very sleepy looking. Will talk to me when I ask her to use her voice and she is appropriate. She was able to do therapy today. She frequently waits for the therapists or the nurses to get her in and out of bed but she can do it without help when you tell her that she has to do it. She sleeps most of the time when her is in the room. She would not drink the MOM yesterday until we raised the possibiltiy of inserting and NG to give Golytely and then she drank the MOM right down. At times her behavior seems manipulative? I think she is much more capable than she presents. Still not eating much. Tells me that she wants to go home but, not motivated to do what it takes to get her home. Eyes conjunctivae normal and no scleral icterus Eyes Narrative: No change in the right cranial nerve III and cranial nerve palsy. Visual Acuity: acuity normal Resp clear to auscultation bilaterally Resp Narrative: Poor inspiratory effort. Not tachypneic. No accessory muscle use. Effort and Inspection: able to speak in complete sentences Cardio regular rate, regular rhythm, no murmurs, no rub and no gallops GI soft to palpation, non-tender and non-distended GI Narrative: No guarding with palpation. No masses and no hepatosplenomegaly. Extremity normal capillary refill, no calf tenderness and no pedal edema Skin General Skin Exam: no breakdown Rashes: no rashes Psych mental status grossly normal, thought process normal, denies homicidal ideation and denies suicidal ideation Attitude: No engaged and evasive Activity / Motor Behavior: avoids eye contact; Negative for psychomotor agitation, fidgetting, hyperactive, disorganized or restless Mood & Affect: flat affect Assessment & Plan Assessment/Plan (1) Constipation: (2) Malnutrition: (3) Dehydration determined by examination: (4) Sleep disorder: (5) History of meningioma of the brain: (6) Physical debility: (7) Status post craniectomy: (8) Anxiety and depression: (9) Hemorrhagic cerebrovascular accident (CVA): (10) Myelodysplastic disease: PLAN: 1. MOM 60 cc now and 10 mg of Bisacodyl PO. Dulcolax suppository if no BM in the next 3-4 hours. I do not think she will drink Golytely. 2. Start IV NS at 100 cc/hr after a 500 cc bolus over 2 hours. 3. check a UA today 4. CBC, BMP and a TSH in the AM 5. Continue the Seroquel at night 6. I think she needs to see a psychiatrist for meds and continue counselling. Ask her why they go to counselling. Consider domestic abuse? Visit Charges Inpatient E&M: 22712 Subs Hosp L2
[2021-05-26] MEDS: Magnesium Hydroxide 30 ML UDC 60 ML PO (11:04)
[2021-05-26] MEDS: 0.9% Saline Lock 10 ML Syringe IV (12:36)
[2021-05-26] MEDS: Bisacodyl 5 MG Tablet 10 MG PO (12:37)
[2021-05-26] MEDS: Menthol/Lanolin/Calamine/Znox 113 GM Tube 1 APPLIC TOPICAL ×2 (13:10→20:00)
[2021-05-26 14:45] VITALS: BMI 19.8
[2021-05-26] MEDS: 0.9% Normal Saline 1,000 ML 100 ML IV (15:13)
--- NOTE | 2021-05-26 17:07 | NURSING ---
Received call form Marilee @ [facility] [employer]-PHYSICAL SECURITY MANAGER Nika sutherlandayed for ramiro to be removed her on 05/28
[2021-05-26 18:23] LABS: Mucous, Urine 0 SEEN /hpf (<or=2+); Squamous Epithelial Cells - UA 0 SEEN /hpf (5-10)
[2021-05-26 18:41] LABS: Color, Urine Yellow (Yellow); Glucose, Dipstick Normal (Normal); Ketone-Dipstick Negative (Negative); Leukocyte Esterase-Dipstick 100 /ul (Negative); Nitrite-Dipstick Negative (Negative); Occult Blood-Urine 50 /ul (Negative); Protein-Dipstick 30 mg/dl (Negative); Specific Gravity, Urine 1.015 (1.002-1.030); Urine Bilirubin Dipstick Negative (Negative); Urine Clarity Sl. Cloudy (Clear); Urine Urobilinogen Normal (Normal)
[2021-05-26 18:53] LABS: White Blood Cells 25-50 SEEN /hpf (0-5)
[2021-05-26 18:54] LABS: Red Blood Cells-Urine 5-10 SEEN /hpf (0-5)
[2021-05-26 18:55] LABS: Bacteria 3+ /hpf (None Seen)
[2021-05-26] MEDS: QUEtiapine 25 MG Tablet PO (19:59)
[2021-05-26] MEDS: Atorvastatin Calcium 40 MG Tablet PO (20:00)
[2021-05-26 22:00] VITALS: BP 141/60; PULSE 63; RESP 18; TEMP 36.8; O2SAT 95
[2021-05-27 01:17] VITALS: BMI 19.8
[2021-05-27] MEDS: 0.9% Normal Saline 1,000 ML 100 ML IV (01:27)
[2021-05-27 05:51] LABS: Hematocrit 29.1 % (37-47); Hemoglobin 9.1 g/dL (12.0-15.0); Mean Corp Hgb Conc 31.3 g/dL (32-36); Mean Corpuscular Hgb 28.1 pg (27.0-32.0); Mean Corpuscular Volume 89.8 fL (81-99); Mean Platelet Vol. 13.2 fl (6.2-12.0); Platelet Count 221 K/mm3 (150-450); RBC Distribution Width SD 51.1 fl (35.1-43.9); Red Blood Count 3.24 M/mm3 (4.2-5.4); White Blood Count 5.4 K/mm3 (4.4-11.0)
[2021-05-27] MEDS: Menthol/Lanolin/Calamine/Znox 113 GM Tube 1 APPLIC TOPICAL ×3 (06:17→20:56)
[2021-05-27 06:25] LABS: Anion Gap 7 (5-15); BUN 10 mg/dL (7-18); BUN/Creat Ratio 16.1 RATIO (10-20); Calcium,Total 8.2 mg/dL (8.5-10.1); Chloride 110 mmol/L (98-107); Creatinine, Serum 0.62 mg/dL (0.55-1.02); EST Glomerular Filtration Rate 102 mL/min (>60); Est Glom Filt Rate - Afr Amer 123 mL/min (>60); Estimated Creatinine Clearance 42.23 ml/min; Glucose 92 mg/dL (74-106); Potassium 3.8 mmol/L (3.5-5.1); Sodium Level 142 mmol/L (136-145); Thyroid Stim Hormone (TSH) 0.74 uIU/mL (0.358-3.74)
[2021-05-27] MEDS: Ensure Clear 120 ML Liquid PO ×3 (07:58→20:56)
[2021-05-27] MEDS: Polyethylene Glycol 3350 17 GM PACKET PO (07:58)
[2021-05-27] MEDS: Aspirin 81 MG TAB.CHEW PO (07:58)
[2021-05-27] MEDS: Propranolol 40 MG Tablet PO ×2 (07:58→20:55)
[2021-05-27] MEDS: Multivitamins,Therapeutic Tablet 1 TABLET PO (07:58)
[2021-05-27] MEDS: Senna/Docusate Sodium 1 Tablet 2 TABLET PO ×2 (07:58→20:54)
[2021-05-27] MEDS: Lisinopril 20 MG Tablet PO (07:58)
[2021-05-27] MEDS: Heparin Injection (Vial) 5,000 UNIT/ML VIAL 5000 UNIT SC ×2 (07:59→20:56)
[2021-05-27 10:00] VITALS: BP 156/71; PULSE 66; RESP 16; TEMP 36.8; O2SAT 99
[2021-05-27 13:27] VITALS: BMI 19.8
[2021-05-27 19:39] VITALS: BP 148/66; PULSE 64; RESP 14; TEMP 36.9; O2SAT 95
[2021-05-27] MEDS: QUEtiapine 25 MG Tablet PO (20:55)
[2021-05-27] MEDS: Cefadroxil 500 MG CAPSULE PO (20:56)
[2021-05-27] MEDS: 0.9% Saline Lock 10 ML Syringe IV (21:33)
[2021-05-27] MEDS: Atorvastatin Calcium 40 MG Tablet PO (21:34)
--- NOTE | 2021-05-28 06:40 | NURSING ---
Addendum entered by María Mckinney 05/29/21 09:57: ERROR, THIS NOTE IS ON THE WRONG PATIENT. WILLARD RAYO Original Note: UPON GETTING OOB THIS AM PT'S PAIN SUDDENLY RETURNS AND PT RATES PAIN #10. PT UNABLE TO TOLERATE WALKING TO BATHROOM AND BSC USED INSTEAD. PT UNABLE TO TOLERATE MOVEMENT AND WANTS TO RETURN TO BED AFTER PARTIAL BED BATH ONLY. PT MEDICATED WITH FLEXERIL AND WILL EAT HER BREAKFAST IN BED.
[2021-05-28 10:00] VITALS: BP 141/51; PULSE 84; RESP 16; TEMP 37.2; O2SAT 97
--- NOTE | 2021-05-28 10:24 | PCM.PN.BLA ---
Progress Note Day #27 of Duricef for Enterobacter UTI Afebrile VSS-the systolic blood pressure is mildly elevated today. HR is WNL. Diastolic is within goal. Maintaining appropriate oxygen saturation on RA Oral intake is poor. She took only 470 cc yesterday and 120 cc overnight. She still has post void residuals. They have ranged from 164-208 since removal of the Burden catheter on the eighth. No BM yesterday. She had 4 BM's after laxatives on the . She is on Miralax and senna. She is taking the medications. Discussed with nursing - slept well last night. She tells me that she feels a little hung over today. The nursing note about pain is on the wrong pt......the pt described is in 407. Reviewed the PT/OT/ST notes Medication list reviewed. Has not had to take the Haldol for nausea since the . She was sitting up in the chair at the bedside when I entered the room and this is the first time I have seen her out of the bed when she is not in therapy. She denies lightheadedness. No palpitations. Denies SOB, CP, N/V/abd pain, dysuria. She is tolerating the Duricef with no adverse reactions. She looks drowsy. She will only talk when I ask her to, otherwise she shakes her head. She will make eye contact and open her eyes only when I ask her to. Very flat affect. Voice is more like herself the past few days but, does not talk much. Poor projection of the voice. H - RRR, no gallop MM - dry Abd is soft and ND with decreased freq BS's. No guarding with palpation. No suprapubic pain. No peripheral edema and no calf pain. No skin breakdown. Impression 1. Debility due to recent ICH due to reperfusion after R ICA bypass from the R superficial temporal A. 2. Multiple TIA's/strokes starting in August of 2020 3. urine retention - suspect related to severe constipation. 4. Fecal incontinence - does not always know that she is having a BM. May be due to laxatives 5. Suspected severe depression 6. MCKAYLA occlusion due to meningioma 7. MDS - HGB is stable. will recheck CBC in 1 week. 8. HTN 9. FH of BPD in her sister Tapering the Propanolol has resolved the chronic nausea. I suspect the psychomotor slowing may also related. Will decrease the dose to 20 mg BID today and after 72 hours will DC the Propanolol. Continue to observe the HR closely and the BP. If no change in the affect following DC of the Propanolol will start an antidepressant. Will need to resume counselling after DC and I am going to recommend more intensive counselling and will discuss the unit at [facility] with her. Will ask to see her while she is on the rehab unit. Visit Charges Inpatient E&M: 28733 Subs Hosp L2
[2021-05-28] MEDS: Multivitamins,Therapeutic Tablet 1 TABLET PO (10:35)
[2021-05-28] MEDS: Heparin Injection (Vial) 5,000 UNIT/ML VIAL 5000 UNIT SC ×2 (10:35→19:56)
[2021-05-28] MEDS: Aspirin 81 MG TAB.CHEW PO (10:35)
[2021-05-28] MEDS: Cefadroxil 500 MG CAPSULE PO ×2 (10:35→19:55)
[2021-05-28] MEDS: Ensure Clear 120 ML Liquid PO ×3 (10:35→19:57)
[2021-05-28] MEDS: Polyethylene Glycol 3350 17 GM PACKET PO (10:36)
[2021-05-28] MEDS: Lisinopril 20 MG Tablet PO (10:36)
[2021-05-28] MEDS: Senna/Docusate Sodium 1 Tablet 2 TABLET PO ×2 (10:36→19:56)
[2021-05-28] MEDS: Propranolol 40 MG Tablet PO (10:36)
--- NOTE | 2021-05-28 14:40 | CASEMGMT ---
Social Work IDT discussed patient's progress. Dr. Larose made referral to [facility] for depression, flat affect and behaviors. Counseling to visit pt in room 06/03 about services at [place]. ART entered order and made follow up phone call - left message with Lorena. ART to continue to follow. TUTU SchererW
--- NOTE | 2021-05-28 14:52 | CASEMGMT ---
Social Work Contacted to follow up on DC plans. Discussed with IDT and currently recommending SNF vs Home. is concerned about pt going to a SNF. Encouraged to research facilities and tour. Explained Medicare benefit in a SNF, along with psychology and psychiatry services pt could benefit from. would like to look in [facility] - explained most [place] SNFs are currently not taking admissions r/t COVID and staffing, but offered to contact to verify. still unsure at this time. Will have Team meeting 06/01 to discuss further. SW to continue to follow. Shelby Bacon, COUNTER HOP RETAIL SALESPERSON
[2021-05-28 16:51] VITALS: BMI 19.8
[2021-05-28 19:30] VITALS: BP 146/67; PULSE 97; RESP 16; TEMP 37.4; O2SAT 95
[2021-05-28] MEDS: QUEtiapine 25 MG Tablet 12.5 MG PO (19:55)
[2021-05-28] MEDS: Magnesium Hydroxide 30 ML UDC PO (19:55)
[2021-05-28] MEDS: Atorvastatin Calcium 40 MG Tablet PO (19:55)
[2021-05-28] MEDS: Propranolol 10 MG Tablet 20 MG PO (19:55)
[2021-05-28] MEDS: Menthol/Lanolin/Calamine/Znox 113 GM Tube 1 APPLIC TOPICAL (19:56)
--- NOTE | 2021-05-28 23:10 | NURSING ---
Pt keeps calling out wanting nurse to do everything for her. Pt will not even try to roll to her side. Pt wants this nurse to turn her. encourage pt to help but pt just lays there. Previous pt wanted to sit up. Pt just puts her arm out and wants nurse to pull her up. Previously before that requested this nurse to move her legs.
[2021-05-29] MEDS: Menthol/Lanolin/Calamine/Znox 113 GM Tube 1 APPLIC TOPICAL ×2 (05:09→20:51)
[2021-05-29 07:30] VITALS: BP 119/63; PULSE 76; RESP 17; TEMP 37.1; O2SAT 94
[2021-05-29] MEDS: Lisinopril 20 MG Tablet PO (07:47)
[2021-05-29] MEDS: Multivitamins,Therapeutic Tablet 1 TABLET PO (07:47)
[2021-05-29] MEDS: Cefadroxil 500 MG CAPSULE PO ×2 (07:47→20:49)
[2021-05-29] MEDS: Aspirin 81 MG TAB.CHEW PO (07:47)
[2021-05-29] MEDS: Ensure Clear 120 ML Liquid PO ×2 (07:48→20:50)
[2021-05-29] MEDS: Polyethylene Glycol 3350 17 GM PACKET PO (07:51)
[2021-05-29] MEDS: Propranolol 10 MG Tablet 20 MG PO ×2 (07:52→20:51)
[2021-05-29] MEDS: Senna/Docusate Sodium 1 Tablet 2 TABLET PO ×2 (07:52→20:51)
[2021-05-29] MEDS: Heparin Injection (Vial) 5,000 UNIT/ML VIAL 5000 UNIT SC ×2 (07:55→20:50)
[2021-05-29 16:20] VITALS: BMI 19.8
[2021-05-29 20:05] VITALS: BP 122/77; PULSE 70; RESP 16; TEMP 36.5; O2SAT 94
[2021-05-29] MEDS: QUEtiapine 25 MG Tablet 12.5 MG PO (20:48)
[2021-05-29] MEDS: Atorvastatin Calcium 40 MG Tablet PO (20:51)
[2021-05-30 02:11] VITALS: BMI 19.8
[2021-05-30] MEDS: Menthol/Lanolin/Calamine/Znox 113 GM Tube 1 APPLIC TOPICAL (05:25)
[2021-05-30 07:45] VITALS: BP 119/47; PULSE 66; RESP 16; TEMP 36.1; O2SAT 98
[2021-05-30] MEDS: Heparin Injection (Vial) 5,000 UNIT/ML VIAL 5000 UNIT SC ×2 (09:20→20:33)
[2021-05-30] MEDS: Aspirin 81 MG TAB.CHEW PO (09:21)
[2021-05-30] MEDS: Propranolol 10 MG Tablet 20 MG PO ×2 (09:21→20:38)
[2021-05-30] MEDS: Cefadroxil 500 MG CAPSULE PO ×2 (09:21→20:37)
[2021-05-30] MEDS: Multivitamins,Therapeutic Tablet 1 TABLET PO (09:21)
[2021-05-30] MEDS: Ensure Clear 120 ML Liquid PO ×3 (09:21→20:32)
[2021-05-30] MEDS: Lisinopril 20 MG Tablet PO (09:21)
[2021-05-30 12:27] VITALS: BMI 19.8
[2021-05-30 20:14] VITALS: BP 130/58; PULSE 69; RESP 16; TEMP 37; O2SAT 98
[2021-05-30] MEDS: QUEtiapine 25 MG Tablet 12.5 MG PO (20:37)
[2021-05-30] MEDS: Atorvastatin Calcium 40 MG Tablet PO (20:39)
[2021-05-30 20:47] VITALS: BP 129/58; PULSE 76; RESP 16; O2SAT 94
[2021-05-31 07:24] VITALS: BP 101/52; PULSE 73; RESP 16; TEMP 37.2; O2SAT 95
[2021-05-31] MEDS: Ensure Clear 120 ML Liquid PO ×3 (07:39→20:16)
[2021-05-31] MEDS: Aspirin 81 MG TAB.CHEW PO (07:39)
[2021-05-31] MEDS: Cefadroxil 500 MG CAPSULE PO ×2 (07:39→20:16)
[2021-05-31] MEDS: Heparin Injection (Vial) 5,000 UNIT/ML VIAL 5000 UNIT SC ×2 (07:40→20:16)
[2021-05-31] MEDS: Multivitamins,Therapeutic Tablet 1 TABLET PO (07:41)
[2021-05-31] MEDS: Propranolol 10 MG Tablet 20 MG PO ×2 (07:41→20:15)
[2021-05-31] MEDS: Polyethylene Glycol 3350 17 GM PACKET PO (07:42)
[2021-05-31] MEDS: Lisinopril 20 MG Tablet PO (07:43)
[2021-05-31] MEDS: Acetaminophen 325 MG Tablet 650 MG PO (09:16)
[2021-05-31 13:28] VITALS: BMI 19.8
[2021-05-31 19:40] VITALS: BP 138/53; PULSE 57; RESP 16; TEMP 36.6; O2SAT 100
[2021-05-31] MEDS: Atorvastatin Calcium 40 MG Tablet PO (20:15)
[2021-05-31] MEDS: QUEtiapine 25 MG Tablet 12.5 MG PO (20:15)
[2021-05-31] MEDS: Menthol/Lanolin/Calamine/Znox 113 GM Tube 1 APPLIC TOPICAL (20:31)
[2021-05-31 20:33] VITALS: PULSE 76; RESP 16; O2SAT 94
--- NOTE | 2021-06-01 05:16 | PCA ---
Pt. called out for assist with AM care, staff assist pt to bathroom and offered a shower. Pt agreed to shower and hair washing, while assisting pt with washing pt started to scream the water was too hot then too cold. Once water was at a comfortable temp staff started to assist with hair washing, pt then screamed Im done! This was your idea not mine! When staff asked pt how she washed her hair at home pt stated very carefully. Staff continued to talk in a calm tone explaining every step of the hair washing process. Pt calmed down a bit and allowed shower to be finished but continued to insist the shower be done quicker. Staff assist with drying and dressing, set up for oral care and dried hair. pt returned back to bed and thanked staff for their help. Both RN and PULPING MACHINE OPERATOR in the room at the time of shower.
[2021-06-01 07:26] VITALS: BP 107/55; PULSE 79; RESP 14; TEMP 37.1; O2SAT 95
[2021-06-01] MEDS: Senna/Docusate Sodium 1 Tablet 2 TABLET PO (09:03)
[2021-06-01] MEDS: Cefadroxil 500 MG CAPSULE PO ×2 (09:04→20:15)
[2021-06-01] MEDS: Polyethylene Glycol 3350 17 GM PACKET PO (09:04)
[2021-06-01] MEDS: Multivitamins,Therapeutic Tablet 1 TABLET PO (09:04)
[2021-06-01] MEDS: Propranolol 10 MG Tablet 20 MG PO (09:04)
[2021-06-01] MEDS: Aspirin 81 MG TAB.CHEW PO (09:04)
[2021-06-01] MEDS: Lisinopril 20 MG Tablet PO (09:04)
[2021-06-01] MEDS: Heparin Injection (Vial) 5,000 UNIT/ML VIAL 5000 UNIT SC ×2 (09:05→20:17)
[2021-06-01] MEDS: Ensure Clear 120 ML Liquid PO (09:05)
--- NOTE | 2021-06-01 10:06 | PCM.PN.BLA ---
Progress Note Day #6 cefadroxil for Enterobacter UTI. Burden catheter was removed last week. Deepika was seen on team rounds today. Her and daughter were present in the room and another daughter was participating by phone. Afebrile VSS Maintaining appropriate oxygen saturation on RA Oral intake is usually less than adequate Weight has decreased approximately 10 pounds since admission. Discussed with nursing - no problems that need addressed Reviewed the PT/OT/ST notes. All therapists agree that she is more alert today. She is still not wanting to get out of bed and needs a lot of encouragement. she is ambulating further but still fatigues easily. She has good bed mobility without assist and she ambulated to the BR at [facility] with no AD. doing better with ST Medication list reviewed. She denies cough, shortness of breath, dysuria, abdominal pain, nausea, vomiting, cramping, lightheadedness. She also denies cephalgia and neck pain. A&O X 3 very alert and making good eye contact with staff and her family. she had her hair washed today and initially complained and did not want to have her hair washed but, she felt better after. she is aware that because of the dysphagia she needs to sit upright for 30 minutes after meals. She requested her bring her her favorite meal from [employer]. Lungs are CTA, no labored respirations and she is not tachypneic. HRRR, no gallop no ankle edema, no calf pain She was able to get to the EOB without assist no rashes. Impressions 1. S/P ICH due to reperfusion 2. Nausea and urine retention resolved with tapering the Propanolol and getting her bowels moving. 3. Much more alert with tapering of the Propanolol. She is sleeping well now with 12.5 mg of Seroquel 4. Left arm is still very weak. Able to move the shoulder now but no movement distally yet 5. severe Depression - She has agreed to using and antidepressant and I have started Remeron to help with depression, insomnia and appetite. May be able to get her off Seroquel in a few days if the Remeron is enough to help with sleep. She was seen by today and she wanted to sign up for their program 6. HTN - Propanolol has been discontinued and the BP is WNL. No lightheadedness and the HR is also WNL. Visit Charges Inpatient E&M: 74577 Subs Hosp L2
[2021-06-01 11:42] LABS: Albumin, Serum 2.7 g/dL (3.2-5.0)
--- NOTE | 2021-06-01 14:11 | CASEMGMT ---
Social Work IDT met with patient and family for Team meeting. Discussed patient's progress in PT/OT/ST and nursing. Pt progressing well but IDT expressed concern with pt returning home and not being motivated to continue progressing. spoke frankly about concerns and recommendations. agreeable to keep pt accountable to performing tasks independently and not enabling pt. Pt agreeable to listen to and follow recommendations. SW suggested making 'goal chart' for pt to have visual goals of progress with rewards - pt agreeable to liking that and helping at home. Family agreeable to create. IDT recommending [facility] - pt and family agreeable. Provided C list with quality and resource data. Family to notify SW of choice. No DME needs. to transport. Plan: DC home with 06/05, [facility] PT/OT/ST/SN/ART Bacon, GENERAL FARMWORKER LOG CLERK
--- NOTE | 2021-06-01 14:46 | BH.NOTE ---
BH: Inpatient Note - Notes Behavioral Health Inpatient Note: 06/01/21 14:46 This therapist received a referral for a consult from Dr. Larose and Rehab/TCU protective services social worker, Shelby Bacon. This therapist introduced self and explained [facility] IOP program and services. Therapist initially met with pt alone to discuss symptoms and stressors and then pt wanted her and daughter present to discuss additional symptoms and treatment options. Pt and family shared that pt has been depressed and anxious over the past 6 months or so due to numerous medical issues and hospital stays. Pt was short with responses and did not share much information, but did share I get stressed out real easy and her daughter shared pt has been withdrawing from family, crying frequently, and not sleeping well. Pt reports her appetite is poor but her sleep has improved with the recent medication change. Pt does not present as imminent risk to self or others and is currently staying in the rehab unit of [facility]. Pt reports family support. Pt currently seeing an outpatient therapist, but reports she is not able to see this outpatient therapist on a frequent basis. Pt and family believe IOP would be beneficial. Therapist explained IOP is currently on a 4 week wait list and could potentially admit pt the second week of June. Offered additional IOP programs in the area. Pt declined other options and wants to be put on the IOP wait list. This therapist will follow up with pt in a week to check-in and provide--if any--IOP updates/change in wait list. 06/01/21 14:48 06/01/21 15:15 06/01/21 15:25 06/01/21 15:25 06/01/21 15:31
[2021-06-01 17:00] VITALS: BMI 19.8
[2021-06-01 19:59] VITALS: BP 110/60; PULSE 66; RESP 16; TEMP 36.7; O2SAT 96
[2021-06-01] MEDS: Mirtazapine 15 MG Tablet PO (20:12)
[2021-06-01] MEDS: QUEtiapine 25 MG Tablet 12.5 MG PO (20:14)
[2021-06-01] MEDS: Menthol/Lanolin/Calamine/Znox 113 GM Tube 1 APPLIC TOPICAL (20:15)
[2021-06-01] MEDS: Atorvastatin Calcium 40 MG Tablet PO (20:17)
[2021-06-01] MEDS: Mag Hydrox/Al Hydrox/Simeth 30 ML UDC PO (22:43)
[2021-06-01] MEDS: Acetaminophen 325 MG Tablet 650 MG PO (23:50)
[2021-06-02 03:02] VITALS: BMI 19.8
[2021-06-02 06:10] LABS: Hematocrit 26.7 % (37-47); Hemoglobin 8.5 g/dL (12.0-15.0); Mean Corp Hgb Conc 31.8 g/dL (32-36); Mean Corpuscular Hgb 28.9 pg (27.0-32.0); Mean Corpuscular Volume 90.8 fL (81-99); Mean Platelet Vol. 13.1 fl (6.2-12.0); Platelet Count 200 K/mm3 (150-450); RBC Distribution Width CV 17.3 % (11.6-14.6); RBC Distribution Width SD 52.8 fl (35.1-43.9); Red Blood Count 2.94 M/mm3 (4.2-5.4); White Blood Count 4.1 K/mm3 (4.4-11.0)
[2021-06-02 06:34] LABS: Anion Gap 5 (5-15); BUN 15 mg/dL (7-18); BUN/Creat Ratio 19.3 RATIO (10-20); Calcium,Total 9.2 mg/dL (8.5-10.1); Chloride 105 mmol/L (98-107); Creatinine, Serum 0.78 mg/dL (0.55-1.02); EST Glomerular Filtration Rate 79 mL/min (>60); Est Glom Filt Rate - Afr Amer 95 mL/min (>60); Estimated Creatinine Clearance 38.26 ml/min; Glucose 116 mg/dL (74-106); Potassium 3.6 mmol/L (3.5-5.1); Sodium Level 137 mmol/L (136-145)
[2021-06-02 07:37] VITALS: BP 115/54; PULSE 75; RESP 16; TEMP 36.9; O2SAT 92
[2021-06-02] MEDS: Multivitamins,Therapeutic Tablet 1 TABLET PO (08:28)
[2021-06-02] MEDS: Aspirin 81 MG TAB.CHEW PO (08:28)
[2021-06-02] MEDS: Cefadroxil 500 MG CAPSULE PO ×2 (08:28→19:53)
[2021-06-02] MEDS: Ensure Clear 120 ML Liquid PO ×3 (08:28→17:37)
[2021-06-02] MEDS: Menthol/Lanolin/Calamine/Znox 113 GM Tube 1 APPLIC TOPICAL ×2 (08:28→19:55)
[2021-06-02] MEDS: Heparin Injection (Vial) 5,000 UNIT/ML VIAL 5000 UNIT SC ×2 (08:29→19:54)
--- NOTE | 2021-06-02 08:52 | CASEMGMT ---
Social Work Spoke with therapist to follow up on visit with pt and family. Pt agreeable to IOP services at [place], however, this is a waiting list. therapist to check in after DC to ensure continued agreement with services. This worker explained SW will be added to [facility] order for continued support in the interim. Pt and family requesting referral to [facility]. Referral made for PT/OT/ST/SN/SW. No DME needs. Plan: DC home with 06/05 TUTU Scherer
[2021-06-02 13:51] VITALS: BMI 19.8
--- NOTE | 2021-06-02 18:19 | PCM.PN.BLA ---
Progress Note Day #7 of 7 cefadroxil for Enterobacter UTI. Afebrile VSS-the blood pressure and heart rate are stable off propanolol. Maintaining appropriate oxygen saturation on RA Oral intake is improving. She has been eating the food her brings to her. No bowel movement for 3 days and she has been refusing senna. She refused MiraLAX today but she took it on the and . Discussed with nursing - She is abrupt at times.....wants everything the minute she thinks about it. She is irritable at times with staff and with her . She is much more alert. she is sleeping well. Reviewed the PT/OT/ST notes Medication list reviewed. All lab was personally reviewed. The hemoglobin is 8.5 today, down from 9.1 last week. The white blood cell count is mildly decreased at 4.1 and the platelet count is within normal limits. The BMP is remarkable for a BUN of 15 and a creatinine of 0.8. The BUN/creatinine ratio is 19.3, up from 16.1 last week when she received IV fluids. The calcium corrected for hypoalbuminemia is within normal limits. She denies dysuria, chest pain, shortness of breath, nausea. She has not had anything for nausea since 05/25/2021. I suspect the nausea was coming from the propanolol. I also feel the propanolol was contributing to fatigue, drowsiness, confusion. She has done much better since it was tapered and then discontinued discontinued yesterday. She is tolerating the Remeron 15 mg p.o. nightly without daytime drowsiness. Physical Exam Const alert, oriented x3 and no apparent distress Constitutional Narrative: she is much more alert the past 2 days. She has been out of bed more today and has been asking to sit in the chair. Her took her for a ride in the which she enjoyed. She was previously sleeping through her 's entire visit. She has been cooperative with therapy. She is not always cooperative with taking her medications. Eyes PERRL, conjunctivae normal and no scleral icterus Eyes Narrative: No change in the right cranial nerve III and cranial nerve palsy. Neck No nuchal rigidity, No no lymphadenopathy and supple General: trachea midline; Negative for lymphadenopathy Chest inspection of chest normal Chest Narrative: Decreased respiratory effort. CTA. Not coughing. no conversational dyspnea. She is more talkative and her voice is projecting better than it has in the past. She has a more normal odilon to her speech. I have no difficulty understanding her. Chest: symmetrical chest wall rise Resp normal respiratory effort, normal air movement and clear to auscultation bilaterally Resp Narrative: Poor inspiratory effort. Not tachypneic. No accessory muscle use. Effort and Inspection: able to speak in complete sentences Auscultation: Negative for rales, rhonchi or wheezes Cardio regular rate, regular rhythm, S1 normal heart sound, S2 normal heart sound, no murmurs, no rub and no gallops Cardio Narrative: no ectopy GI normal to inspection, nondistended, normoactive bowel sounds, soft to palpation, non-tender and non-distended GI Narrative: No guarding with palpation. No masses and no hepatosplenomegaly. No bowel movement for 3 days now. Extremity normal capillary refill, no calf tenderness and no pedal edema General Extremity: Negative for clubbing, cyanosis or edema Skin Skin Narrative: scalp incision is intact with no dehiscence and there is no gene-incisional erythema and no purulent discharge. There is some dried serosanguineous discharge. General Skin Exam: no breakdown Rashes: no rashes Wounds: wounds noted Neuro Neuro Narrative: She has some left shoulder movement now but still is unable to move the forearm. No use of her left hand yet. Psych thought process normal, denies homicidal ideation and denies suicidal ideation Psych Narrative: She is making good eye contact with me now. She is more talkative and her voice projects well. She is no longer sleeping all day and has been more cooperative and willing to do therapy. She refuses her medications at time. I did have to explain to her that if she wants to prevent having to have a Burden reinserted then she needs to move her bowels regularly and take the stool softeners as ordered. She was agreeable. She is also agreeable today, as well as last night, to attend behavioral health at [facility] and will start the second week in June. By this time the Remeron should have had some positive effect on elevating her mood. Thought Content: No suicidality and No homicidality Memory / Cognition: memory grossly intact Insight: poor Judgement: poor Assessment & Plan Assessment/Plan (1) Physical debility: PLAN: The plan is to discharge her home on Tuesday. Her has come in for family training. He feels confident he can care for her at home. (2) Carotid stenosis, right: PLAN: She had occlusion of the right internal carotid artery secondary to tumor growing within the artery. She started having strokes in the spring. She had an elective procedure on 05/11/21 to directly bypass the R superficial temporal artery to the R MCA and had excellent blood flow however she unfortunately had a reperfusion hemorrhage and subsequently had a craniectomy to decompress the brain. Prior to coming to rehab she had a cranioplasty with insertion of a titanium mesh to protect the brain and the bone flap was replaced. (3) Status post craniectomy: (4) Hemorrhagic cerebrovascular accident (CVA): PLAN: due to reperfusion (5) History of cranioplasty: (6) Malnutrition: PLAN: Due to poor intake. (7) Myelodysplastic disease: PLAN: She gets a shot every 2 weeks from hematology to stimulate RBC production and has not been requiring transfusions as often. this has been held while she is in rehab. is going to try and arrange an appt with heme/once so that she can have her injection Tuesday following DC. HGB is 8.5 today and there is no need for transfusion (8) Hypertension: PLAN: Controlled with Lisinopril only since the Propanolol has been discontinued due to adverse side effects including nausea, severe constipation, urine retention, depression and confusion. Would avoid beta blockers going forward unless she has a problem with tachycardia and then would choose a cardioselective beta-meron or Cardizem. (9) GERD (gastroesophageal reflux disease): PLAN: No complaints of heartburn since the propanolol has been tapered off and the constipation was treated. She responded well to Haldol for nausea but has not had any medication for nausea since 05/25/2021. (10) Constipation: PLAN: This is chronic and I recommended she increase her fluid intake and take the stool softeners as ordered. Severe constipation leads to urine retention in females and she had to have a Burden catheter earlier in the admission. (11) Sleep disorder: PLAN: She has been sleeping well since the propanolol was tapered off and Remeron was started. She has also been receiving Seroquel 12.5 mg p.o. nightly with good result. (12) History of meningioma of the brain: PLAN: History of his low resection in 2017 followed by gamma knife to treat the tumor surrounding the right carotid artery. (13) Anxiety and depression: PLAN: She is severely depressed. I have not seen a lot of anxiety from her. She is irritable and demanding at times. She met with the behavioral therapist yesterday from [facility] and signed up to attend the intensive behavioral health program starting in the second week in June. I think it is imperative that she has therapy in conjunction with an antidepressant. Would continue Remeron for at least 6 months before even thinking about tapering or discontinuing. She has had many setbacks in the past few years and is understandably quite depressed. 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 (16) Adverse reaction to drug: PLAN: She had menarche at reactions to the nonselective beta-meron propanolol due to a crossing the blood-brain barrier. She may have tolerated this in the past but when she developed the intracerebral hemorrhage and additional ischemic damage she became very symptomatic. She is doing well off propanolol and the blood pressure remains controlled and the heart rate is within normal limits on just lisinopril. Visit Charges Inpatient E&M: [id number] [facility] Hosp L3
[2021-06-02 19:45] VITALS: BP 125/55; PULSE 77; RESP 16; TEMP 36.7; O2SAT 97; BMI 19.8
[2021-06-02] MEDS: Magnesium Hydroxide 30 ML UDC 60 ML PO (19:50)
[2021-06-02] MEDS: Mirtazapine 15 MG Tablet PO (19:53)
[2021-06-02] MEDS: QUEtiapine 25 MG Tablet 12.5 MG PO (19:53)
[2021-06-02] MEDS: Senna/Docusate Sodium 1 Tablet 2 TABLET PO (19:54)
[2021-06-02] MEDS: Atorvastatin Calcium 40 MG Tablet PO (19:54)
[2021-06-02] MEDS: Bisacodyl 5 MG Tablet 10 MG PO (21:02)
[2021-06-03] MEDS: Senna/Docusate Sodium 1 Tablet 2 TABLET PO (08:27)
[2021-06-03] MEDS: Ensure Clear 120 ML Liquid PO ×3 (08:27→20:34)
[2021-06-03] MEDS: Heparin Injection (Vial) 5,000 UNIT/ML VIAL 5000 UNIT SC ×2 (08:27→20:35)
[2021-06-03] MEDS: Multivitamins,Therapeutic Tablet 1 TABLET PO (08:27)
[2021-06-03] MEDS: Polyethylene Glycol 3350 17 GM PACKET PO (08:27)
[2021-06-03] MEDS: Aspirin 81 MG TAB.CHEW PO (08:27)
[2021-06-03] MEDS: Lisinopril 20 MG Tablet PO (08:27)
[2021-06-03 09:25] VITALS: BP 136/75; PULSE 96; RESP 18; TEMP 37.1; O2SAT 95
[2021-06-03 13:53] VITALS: BMI 19.8
[2021-06-03 20:30] VITALS: BP 112/66; PULSE 70; RESP 16; TEMP 36.8; O2SAT 95; BMI 19.8
[2021-06-03] MEDS: QUEtiapine 25 MG Tablet 12.5 MG PO (20:33)
[2021-06-03] MEDS: Atorvastatin Calcium 40 MG Tablet PO (20:33)
[2021-06-03] MEDS: Menthol/Lanolin/Calamine/Znox 113 GM Tube 1 APPLIC TOPICAL (20:34)
[2021-06-03] MEDS: Mirtazapine 15 MG Tablet PO (20:34)
--- NOTE | 2021-06-03 21:11 | PN.TCU_ITS ---
Subjective Subjective Patient seen, examined. She has no new problems, concerns, issues, complaints. Objective Data Objective Data Vital Signs: Vital Signs Temp Pulse Resp BP Pulse Ox 98.7 F 96 18 136/75 H 95 06/03/21 09:25 06/03/21 09:25 06/03/21 09:25 06/03/21 09:25 06/03/21 09:25 Oxygen Delivery Method Room Air Weight: 44.6 kg Body Mass Index (BMI) 19.8 Intake & Output: Intake and Output for Last 24 Hours 06/01/21 06/02/21 06/03/21 23:59 23:59 23:59 Intake Total 350 / 350 700 / 700 980 / 980 Output Total 250 / 250 550 / 550 1230 / 1230 Balance 100 / 100 150 / 150 -250 / -250 Medical Nutrition Assessment Dietitian: Malnutrition Criteria Met Start: 05/27/21 15:05 Freq: Status: Active Protocol: Document 05/27/21 15:05 (Rec: 05/27/21 15:05 [id number]) Nutrition Malnutrition Evidence of Malnutrition Exists Yes Malnutrition (severe): Acute Illness/Injury Evidenced By Suboptimal Energy Intake ( Severe),Weight Loss (Severe) Intake Problem Inadequate Oral Intake Etiology r/t decreased appetite d/t likely underlying depression Signs/Symptoms as evidenced by pt refusal of meals, PO intake meeting <50% of estimated nutritional needs Status Active Problem Clinical Problem Acute Disease or Injury Related Malnutrition Etiology severe, acute malnutrition r/t inadequate energy intake Signs/Symptoms as evidenced by estimated PO intake meeting <50% of estimated nutritional needs x 5 days, moderate muscle wasting/fat loss upon physical exam Status Active Problem Recommendation Dietitian Recommendations/Changes Continue regular diet, texture /consistency modifications per GAS DESULFURIZER. Ensure Clear 120mL 4x/ day w/ medpass. Would benefit from appetite stimulant if pt agreeable. Lab / Micro Data Result Diagrams: 06/02/21 04:46 06/02/21 04:46 Micro: Microbiology 05/25/21 18:00 Urine Catheter - Burden Urine Culture - Final Enterobacter cloacae complex 05/27/21 06:00 Stool Stool Occult Blood (FLORIDALMA) - Final Physical Exam Const alert and oriented x3 General Appearance: cooperative HEENT normocephalic Eyes PERRL and EOMs intact bilaterally Neck supple, no JVD and no carotid bruits Resp normal respiratory effort, normal air movement and clear to auscultation bilaterally Cardio regular rate and regular rhythm GI normal to inspection, nondistended, normoactive bowel sounds, non-tender and non-distended Extremity normal capillary refill General Extremity: Negative for edema Skin no rashes or lesions noted General Skin Exam: no breakdown Psych affect normal Appearance: appropriate Assessment & Plan Assessment/Plan (1) Debility: (2) Status post craniectomy: (3) Intracranial hemorrhage: (4) Hyperlipidemia: (5) Hyperlipidemia: (6) Hypertension: (7) Insomnia: (8) Depression: (9) Sundowning: PLAN: 66 year old female with below past medical history hospitalized for intracranial bypass resulting intracranial hemorrhage requiring craniectomy, admitted to for 3 hours daily rehabilitation, strengthening, prior to discharge home with . * Debility - PT/OT. * Dysarthria - ST. * Pain - Tylenol 650mg q6h prn pain (1-10), Oxycodone 5mg q4h prn pain (6-10). * Bowel - Miralax 17gm daily, senna/colace 2 tablets bid, MOM 30ml po x 1 prn. * DVT prophylaxis - Heparin 5,000 units sc q12h. * Carotid artery stenosis - Aspirin 81mg daily. * Hyperlipidemia - Atorvastatin 40mg qhs. * Nutrition - Ensure Clear 120ml 4x/day, MVI daily. * Hypertension - Lisinopril 20mg daily. * Indigestion - Mylanta II 30ml q6h prn. * Skin irritation - Calmoseptine topical bid. * Depression/insomnia/appetite loss - Mirtazapine 15mg qhs. * Dry eyes - Artificial tears 1gtt ou tid prn. * Sundowning - Seroquel 12.5mg qhs. * MDS - Hemoglobin 8.5, monitor, consider Aranesp or transfusion if < 7.0. Capacity Capacity Assessment Tool Can the patient make a choice & communicate that choice?: Yes Can the patient understand benefits, risks and alternatives?: Yes Can the patient make a logical, rational choice?: Yes Is the choice the patient makes consistent w/ their values?: Yes Is there an impending, emergent risk to the patient?: No Does the patient have an Advance Directive?: Yes Is there a Surrogate Available?: Yes i.e. HCPOA: Yes i.e. close relative (spouse, child, parent, sibling)?: Yes
--- NOTE | 2021-06-04 01:40 | NURSING ---
Reviewed and agree with DIRECTOR FOOD AND BEVERAGE assessment.
[2021-06-04 08:31] VITALS: BP 103/63; PULSE 89; RESP 18; TEMP 37.1; O2SAT 96
[2021-06-04] MEDS: Multivitamins,Therapeutic Tablet 1 TABLET PO (09:01)
[2021-06-04] MEDS: Aspirin 81 MG TAB.CHEW PO (09:01)
[2021-06-04] MEDS: Menthol/Lanolin/Calamine/Znox 113 GM Tube 1 APPLIC TOPICAL ×2 (09:01→20:21)
[2021-06-04] MEDS: Lisinopril 20 MG Tablet PO (09:01)
[2021-06-04] MEDS: Polyethylene Glycol 3350 17 GM PACKET PO (09:02)
[2021-06-04] MEDS: Heparin Injection (Vial) 5,000 UNIT/ML VIAL 5000 UNIT SC ×2 (09:02→20:21)
[2021-06-04] MEDS: Acetaminophen 325 MG Tablet 650 MG PO ×2 (09:13→20:43)
[2021-06-04] MEDS: Ensure Clear 120 ML Liquid PO ×3 (09:17→20:21)
[2021-06-04 17:00] VITALS: BMI 19.8
[2021-06-04 19:26] VITALS: BP 135/57; PULSE 76; RESP 16; TEMP 36.7; O2SAT 98
--- NOTE | 2021-06-04 20:07 | PCM.DC.SUM ---
Providers Date of Admission: 05/20/21 Primary Care Physician: Dr. Omari Tavares MD Reason For Visit: CRANIOPLASTY Diagnosis Discharge Diagnosis (1) Debility: Status: Acute Code(s): R53.81 - Other malaise (2) Status post craniectomy: Status: Acute Code(s): Z98.890 - Other specified postprocedural states (3) Intracranial hemorrhage: Status: Acute Code(s): I62.9 - Nontraumatic intracranial hemorrhage, unspecified (4) Hyperlipidemia: Status: Acute Code(s): E78.5 - Hyperlipidemia, unspecified (5) Hyperlipidemia: Status: Acute Code(s): E78.5 - Hyperlipidemia, unspecified (6) Hypertension: Status: Chronic Code(s): I10 - Essential (primary) hypertension (7) Insomnia: Status: Acute Code(s): G47.00 - Insomnia, unspecified (8) Depression: Status: Acute Code(s): F32.A - Depression, unspecified (9) Sundowning: Status: Acute Code(s): F05 - Delirium due to known physiological condition Medications at Discharge Home Medications acetaminophen 650 mg PO Q6H PRN 05/20/21 artificial tears solution 1 drp OPHTHALMIC (EYE) TID PRN 05/20/21 aspirin 81 mg PO DAILY 05/20/21 loratadine 10 mg PO DAILY PRN 05/21/21 atorvastatin 40 mg PO QHS 30 Days #30 tab 06/04/21 lisinopril 20 mg PO DAILY 30 Days #30 tab 06/04/21 mirtazapine 15 mg PO 1999 30 Days #30 tab 06/04/21 multivitamin 1 tab PO BREAKFAST #30 tab 06/04/21 quetiapine 12.5 mg PO 1999 30 Days #15 tab 06/04/21 Hospital Course Operations - (Craniectomy.) Procedures None Summary of Care Provided Minutes Spent on Discharge: 35 Hospital Course: 66 year old female with below past medical history hospitalized for intracranial bypass resulting intracranial hemorrhage requiring craniectomy, admitted to for 3 hours daily rehabilitation, strengthening, prior to discharge home with . Discharge home with 06/05/2021, Home Health Care PT/OT/ST/SN/SW. Physical Exam Const alert and oriented x3 General Appearance: cooperative HEENT normocephalic Eyes PERRL and EOMs intact bilaterally Neck supple, no JVD and no carotid bruits Resp normal respiratory effort, normal air movement and clear to auscultation bilaterally Cardio regular rate and regular rhythm GI normal to inspection, nondistended, normoactive bowel sounds, non-tender and non-distended Extremity normal capillary refill General Extremity: Negative for edema Skin no rashes or lesions noted General Skin Exam: no breakdown Psych affect normal Appearance: appropriate Medical Records Data Medical Nutrition Assessment Dietitian: Malnutrition Criteria Met Start: 05/27/21 15:05 Freq: Status: Active Protocol: Document 05/27/21 15:05 (Rec: 05/27/21 15:05 [id number]) Nutrition Malnutrition Evidence of Malnutrition Exists Yes Malnutrition (severe): Acute Illness/Injury Evidenced By Suboptimal Energy Intake ( Severe),Weight Loss (Severe) Intake Problem Inadequate Oral Intake Etiology r/t decreased appetite d/t likely underlying depression Signs/Symptoms as evidenced by pt refusal of meals, PO intake meeting <50% of estimated nutritional needs Status Active Problem Clinical Problem Acute Disease or Injury Related Malnutrition Etiology severe, acute malnutrition r/t inadequate energy intake Signs/Symptoms as evidenced by estimated PO intake meeting <50% of estimated nutritional needs x 5 days, moderate muscle wasting/fat loss upon physical exam Status Active Problem Recommendation Dietitian Recommendations/Changes Continue regular diet, texture /consistency modifications per RETRIEVAL SPECIALIST. Ensure Clear 120mL 4x/ day w/ medpass. Would benefit from appetite stimulant if pt agreeable. Weight / BMI Weight Weight: 44.6 kg Body Mass Index (BMI) 19.8 ABG / Lab / Microbiology Data Result Diagrams: 06/02/21 04:46 06/02/21 04:46 Microbiology: Microbiology 05/25/21 18:00 Urine Catheter - Burden Urine Culture - Final Enterobacter cloacae complex 05/27/21 06:00 Stool Stool Occult Blood (FLORIDALMA) - Final D/C Instructions Discharge Diet: No restrictions Discharge Activity: Return to Normal Activity, May Shower and Use Walker May resume sexual activity in: No Restrictions Weight Bearing Status: Weight bearing as tolerated Call your doctor if you observe: Fever of 101 or Higher, Inability to urinate, Inability to have a bowel movement, Shortness of breath, Dizziness, Fainting spells, Swelling in the ankles, Chest pain and Uncontrolled pain Additional Instructions: Discharge home with 06/05/2021, Home Health Care PT/OT/ST/SN/SW. Meaningful Use Info Meaningful Use Diagnoses (Choose all that apply): None applicable Discharge Plan Admission Admit Date/Time: 05/20/21 19:30 Primary Reason for Your Visit: Debility. Attending Provider: Qing Larose Primary Care Provider: Omari Tavares Instructions Additional Instructions / Restrictions: Discharge home with 06/05/2021, Home Health Care PT/OT/ST/SN/SW. Discharge Orders/Prescriptions Prescriptions: New multivitamin Tablet 1 tab PO BREAKFAST Qty: 30 RF: 0 atorvastatin 40 mg Tablet 40 mg PO QHS 30 Days Qty: 30 RF: 0 lisinopril 20 mg Tablet 20 mg PO DAILY 30 Days Qty: 30 RF: 0 mirtazapine 15 mg Tablet 15 mg PO 1999 30 Days Qty: 30 RF: 0 quetiapine 25 mg Tablet 12.5 mg PO 1999 30 Days Qty: 15 RF: 0 Continued acetaminophen 325 mg Tablet 650 mg PO Q6H PRN (Reason: Pain) RF: 0 artificial tears solution Drops 1 drp OPHTHALMIC (EYE) TID PRN (Reason: dry eyes) RF: 0 aspirin 81 mg Tablet,Chewable 81 mg PO DAILY RF: 0 loratadine 10 mg Capsule 10 mg PO DAILY PRN (Reason: ALLERGIES) RF: 0 Discontinued atorvastatin 40 mg Tablet 40 mg PO DAILY RF: 0 propranolol 80 mg Tablet 80 mg PO BID RF: 0 lisinopril 20 mg Tablet 20 mg PO DAILY RF: 0 ondansetron 8 mg Tablet,Disintegrating 8 mg PO Q8H PRN (Reason: nausea) RF: 0 oxycodone 5 mg Tablet 5 mg PO Q4H PRN (Reason: severe pain (6-10)) RF: 0 lorazepam 0.5 mg Tablet 0.5 mg PO Q12H PRN PRN (Reason: Anxiety) RF: 0 Referrals / Follow Up: Nika Downs [Other] (07/02/21 @ 1:30) Dr Hamilton [Other] (06/15/21 @ 10:00) Omari Tavares MD [Primary Care Provider] - Disposition Disposition (needs filled in before D/C Order can be placed): Home Health Service
[2021-06-04] MEDS: Atorvastatin Calcium 40 MG Tablet PO (20:21)
[2021-06-04] MEDS: QUEtiapine 25 MG Tablet 12.5 MG PO (20:22)
[2021-06-04] MEDS: Mirtazapine 15 MG Tablet PO (20:23)
[2021-06-04] MEDS: oxyCODONE 5 MG Tablet PO (22:50)
[2021-06-05] MEDS: Multivitamins,Therapeutic Tablet 1 TABLET PO (07:27)
[2021-06-05] MEDS: Lisinopril 20 MG Tablet PO (07:27)
[2021-06-05] MEDS: Ensure Clear 120 ML Liquid PO (07:27)
[2021-06-05] MEDS: Aspirin 81 MG TAB.CHEW PO (07:27)
[2021-06-05] MEDS: Heparin Injection (Vial) 5,000 UNIT/ML VIAL 5000 UNIT SC (07:28)
[2021-06-05] MEDS: Polyethylene Glycol 3350 17 GM PACKET PO (07:28)
[2021-06-05] MEDS: Senna/Docusate Sodium 1 Tablet 2 TABLET PO (07:28)
[2021-06-05 10:00] VITALS: BP 104/61; PULSE 89; RESP 14; TEMP 37.2; O2SAT 95
[2021-06-05 10:15] VITALS: BP 104/61; PULSE 86; RESP 14; TEMP 37.2; O2SAT 95; BMI 19.8
--- NOTE | 2021-06-05 10:15 | NURSING ---
Patient discharged to home with , directions understood and verbalized.
== END 2021-06-05 10:15 | disposition home health service (06) | DRG 949 ==
PROVIDERS: Admitting Provider Internal Medicine; PCP Family Medicine; Visit Provider Internal Medicine
DX: Z48.811 Encounter for surgical aftercare following surgery on the nervous system (principal); I62.9 Nontraumatic intracranial hemorrhage, unspecified; N39.0 Urinary tract infection, site not specified; F05 Delirium due to known physiological condition; E78.5 Hyperlipidemia, unspecified; I12.9 Hypertensive chronic kidney disease with stage 1 through stage 4 chronic kidney disease, or unspecified chronic kidney disease; N18.2 Chronic kidney disease, stage 2 (mild); K21.9 Gastro-esophageal reflux disease without esophagitis; D46.9 Myelodysplastic syndrome, unspecified; F41.9 Anxiety disorder, unspecified; F32.9 Major depressive disorder, single episode, unspecified; R32 Unspecified urinary incontinence; B96.89 Other specified bacterial agents as the cause of diseases classified elsewhere; K59.09 Other constipation; H49.00 Third [oculomotor] nerve palsy, unspecified eye; H49.20 Sixth [abducent] nerve palsy, unspecified eye; Z87.891 Personal history of nicotine dependence; Z79.899 Other long term (current) drug therapy; Z79.82 Long term (current) use of aspirin; Z86.011 Personal history of benign neoplasm of the brain; Z86.73 Personal history of transient ischemic attack (TIA), and cerebral infarction without residual deficits
CPT/HCPCS: 36415; 74018; 80048; 80053; 81001; 82040; 82274; 83690; 83735; 84100; 84443; 85027; 87077; 87086; 87088; 87186; 92507; 92523; 92526; 92610; 97110; 97112; 97116; 97140; 97162; 97166; 97530; 97535; 97802; 97803; 99251; J7030; J7040; J7050; A4216; G0463